=== PATIENT | female | born 1955 | race Caucasian/White ===

== ENCOUNTER 2016-11-24 17:10 | Inpatient (IN) | payer OTHER ==
[~2016-11-24] VITALS: Ht 160 cm; Wt 79.3 kg
[2016-11-24 16:30] VITALS: BP 128/84
[2016-11-24] MEDS ORDERED: PLEASE ENTER HEIGHT AND WEIGHT AND ALLERGIES MC SCH (17:25)
[2016-11-24] MEDS ORDERED: ACETAMINOPHEN 325 MG TABLET PO PRN (17:30)
[2016-11-24] MEDS ORDERED: ONDANSETRON 2MG/ML, 2ML IVPush PRN (17:30)
[2016-11-24] MEDS ORDERED: ONDANSETRON ODT 4 MG PO PRN (17:30)
[2016-11-24] MEDS ORDERED: PLEASE ENTER ALLERGIES MC SCH ×2 (18:00)
[2016-11-24 18:25] LABS: HEMATOCRIT 42.4 % (34.6-47.8); HEMOGLOBIN 14.2 g/dL (11.7-16.4)
[2016-11-24] MEDS: SODIUM CHLORIDE 0.9% 1,000 ML IV SCH (18:35)
[2016-11-24] MEDS: OXYcodone/APAP 5/325MG TABLET PO PRN ×2 (18:35→22:35)
[2016-11-24] MEDS: morphine SULFATE 10 MG/ML, 1ML IVPush PRN (19:59)
[2016-11-24 20:30] VITALS: BP 139/72
[2016-11-25 02:10] VITALS: BP 139/69
[2016-11-25] MEDS: OXYcodone/APAP 5/325MG TABLET PO PRN (02:14)
[2016-11-25] MEDS: LEVOTHYROXINE 75 MCG TABLET PO SCH (04:44)
[2016-11-25 05:29] LABS: BLOOD UREA NITROGEN 12 mg/dL (7-18)
[2016-11-25] MEDS: morphine SULFATE 10 MG/ML, 1ML IVPush PRN (06:33)
[2016-11-25] MEDS: SODIUM CHLORIDE 0.9% 1,000 ML IV SCH ×2 (06:38→19:55)
[2016-11-25 07:15] VITALS: BP 143/82
[2016-11-25] MEDS ORDERED: VANCOMYCIN 1,000 MG ONE (08:58)
[2016-11-25] MEDS ORDERED: KETOROLAC 60 MG/2 ML ONE (08:58)
[2016-11-25] MEDS ORDERED: ROPIvacaine/PF 0.5%, 30 ML ONE ×2 (08:58)
[2016-11-25] MEDS ORDERED: TRANEXAMIC ACID 100 MG/ML, 10ML ONE ×2 (08:59→10:06)
[2016-11-25] MEDS ORDERED: EPINEPHRINE 1 MG/ML, 1ML ONE (08:59)
[2016-11-25] MEDS ORDERED: FENTANYL PF 100 MCG/2ML ONE ×2 (09:32)
[2016-11-25] MEDS ORDERED: MIDAZOLAM 1 MG/ML, 2ML ONE (09:32)
[2016-11-25] MEDS ORDERED: SUCCINYLCHOLINE 20 MG/ML, 10ML ONE (09:34)
[2016-11-25] MEDS ORDERED: PROPOFOL 10 MG/ML, 20ML ONE (09:34)
[2016-11-25] MEDS ORDERED: ONDANSETRON 2MG/ML, 2ML ONE (09:34)
[2016-11-25] MEDS ORDERED: ROCURONIUM 10 MG/ML ONE (09:34)
[2016-11-25] MEDS ORDERED: DEXAMETHASONE 4 MG/ML, 1ML ONE (09:34)
[2016-11-25] MEDS ORDERED: CEFAZOLIN 1,000 MG ONE (09:34)
[2016-11-25] MEDS ORDERED: ONDANSETRON 2MG/ML, 2ML IVPush PRN (11:30)
[2016-11-25] MEDS ORDERED: FENTANYL PF 100 MCG/2ML IV PRN (11:30)
[2016-11-25] MEDS ORDERED: METOCLOPRAMIDE 5 MG/ML, 2ML IV PRN (11:30)
[2016-11-25] MEDS ORDERED: LABETALOL 5MG/ML, 20ML IV PRN (11:30)
[2016-11-25] MEDS ORDERED: ACETAMINOPHEN 325 MG TABLET PO PRN (11:30)
[2016-11-25] MEDS ORDERED: hydrALAzine 20 MG/ML, 1ML IV PRN (11:30)
[2016-11-25] MEDS ORDERED: HYDROmorphone 1 MG/ML, 1ML IV PRN (11:30)
[2016-11-25] MEDS ORDERED: OXYcodone 5 MG/5 ML ORAL.SOL UDC PO PRN (11:30)
[2016-11-25] MEDS ORDERED: CEFAZOLIN 1,000 MG IM SCH (11:30)
[2016-11-25] MEDS ORDERED: ACETAMINOPHEN 650 MG/20.3 ML UDC ONE (11:32)
[2016-11-25] MEDS ORDERED: OXYcodone 5 MG/5 ML ORAL.SOL UDC ONE (11:32)
[2016-11-25] MEDS ORDERED: HYDROmorphone 1 MG/ML, 1ML ONE (11:32)
[2016-11-25 13:15] VITALS: BP 122/55
[2016-11-25 19:30] VITALS: BP 125/67
[2016-11-25] MEDS ORDERED: CEFAZOLIN 1,000 MG IV SCH (19:30)
[2016-11-25] MEDS: ASPIRIN 81 MG TABLET CHEW PO SCH (20:23)
[2016-11-25] MEDS: CEFAZOLIN PMX 2GM/50ML 50 ML IVPB SCH (20:23)
[2016-11-25 23:00] VITALS: BP 137/61
[2016-11-26] MEDS: OXYcodone/APAP 5/325MG TABLET PO PRN ×4 (00:11→13:41)
[2016-11-26 03:24] VITALS: BP 110/57
[2016-11-26] MEDS: CEFAZOLIN PMX 2GM/50ML 50 ML IVPB SCH (04:06)
[2016-11-26] MEDS: SODIUM CHLORIDE 0.9% 1,000 ML IV SCH (04:14)
[2016-11-26] MEDS: LEVOTHYROXINE 75 MCG TABLET PO SCH (05:27)
[2016-11-26 07:29] LABS: HEMATOCRIT 32.4 % (34.6-47.8); WHITE BLOOD COUNT 7.6 x10^3/uL (3.4-10)
[2016-11-26 07:37] LABS: BLOOD UREA NITROGEN 9 mg/dL (7-18)
[2016-11-26 07:50] VITALS: BP 122/76
[2016-11-26] MEDS: ASPIRIN 81 MG TABLET CHEW PO SCH (09:21)
[2016-11-26 14:30] VITALS: BP 144/75
[2016-11-26] MEDS ORDERED: TRAM50TA2 PO (15:19)
[2016-11-26] MEDS ORDERED: OXYC5CAP2 PO (15:19)
[2016-11-26] MEDS ORDERED: ONDA4TAB7 PO (15:20)
[2016-11-26] MEDS ORDERED: ASPI-621 PO (15:20)
[2016-11-26] MEDS ORDERED: ACET-1600 PO (15:22)
== END 2016-11-26 16:15 | disposition home or self-care (01) | DRG 536 ==
LOC: 4NOR 17:14 → DCLOUNGE 11-26 15:12
PROVIDERS: ADMIT Hospitalist; ATTEND Hospitalist
DX: S72.002A Fracture of unspecified part of neck of left femur, initial encounter for closed fracture (principal); D69.6 Thrombocytopenia, unspecified; Z96.642 Presence of left artificial hip joint; D64.9 Anemia, unspecified; E03.9 Hypothyroidism, unspecified; W01.0XXA Fall on same level from slipping, tripping and stumbling without subsequent striking against object, initial encounter; Z79.82 Long term (current) use of aspirin; Z82.49 Family history of ischemic heart disease and other diseases of the circulatory system; Z88.2 Allergy status to sulfonamides; Y93.89 Activity, other specified; Y99.8 Other external cause status
CPT/HCPCS: 36415; 72170; 76001; 80048; 84443; 85025; 85610; 86850; 86900; C1713; J0171; J0690; J1100; J1170; J1885; J2250; J2405; J2704; J2795; J3010; J3370; Q0162; C1776; J0330; J2270; J7030